=== PATIENT | female | born 1990 | race Caucasian/White ===

== ENCOUNTER → 2023-06-12 | Outpatient (REF) | payer BC ==
[2023-06-12 13:30] LABS: C REACTIVE PROTEIN QUANTITATIV < 0.40 MG/DL (<1.0)
[2023-06-12 13:33] LABS: RHEUMATOID FACTOR QUANT < 3.5 IU/ML (<14)
== END ==
LOC: M LAB REF 12:41
PROVIDERS: ATTEND Physician Assistant Medical
DX: M25.541 Pain in joints of right hand (principal)

== ENCOUNTER → 2023-06-12 | Outpatient (CLI) | payer BC | LOC: M WUC 10:25 | PROVIDERS: ATTEND Physician Assistant Medical | DX: M79.641 Pain in right hand (principal); M79.89 Other specified soft tissue disorders; M85.841 Other specified disorders of bone density and structure, right hand ==

== ENCOUNTER → 2023-08-15 | Outpatient (REF) | payer BC | LOC: M LAB REF 16:18 | PROVIDERS: ATTEND Nurse Practitioner Family | DX: R53.83 Other fatigue (principal); Z11.59 Encounter for screening for other viral diseases ==

== ENCOUNTER → 2024-06-16 | Outpatient (REF) | payer BC ==
[2024-06-16 17:10] LABS: IMMUNOGLOBULIN A 152.4 MG/DL (40-350)
[2024-06-18 13:26] LABS: TISSUE TRANSGLUTAMINASE IgA < 1.0 U/mL (<15.0)
== END ==
LOC: M LAB REF 16:20
PROVIDERS: ATTEND Physician Assistant Medical
DX: R53.83 Other fatigue (principal); R53.1 Weakness; E46 Unspecified protein-calorie malnutrition